=== PATIENT | male | born 1985 | race Caucasian/White ===

== ENCOUNTER 2017-11-25 06:05 | Observation (INO) | payer OTHER ==
[~2017-11-25] VITALS: Ht 172.7 cm; Wt 82.3 kg
[2017-11-25 07:22] LABS: HEMATOCRIT 44.8 % (38.0-50.0); HEMOGLOBIN 16.5 G/DL (12.5-16.6); MCH 33.5 PG (29.0-34.0); MCHC 36.8 G/DL (30.0-36.0); MCV 90.9 FL (86-99); PLATELET COUNT 122 K/uL (156-360); RBC DIS.WIDTH-CV 11.5 % (11.8-14.6); RBC DIS.WIDTH-SD 38.3 % (39-53); RED BLOOD COUNT 4.93 M/uL (4.00-5.50); WHITE BLOOD COUNT 5.7 K/uL (4.1-10.2)
[2017-11-25 07:47] LABS: TROP-I INTERPRETATION POSITIVE; TROPONIN-I 5.41 ng/mL (0.0-0.30)
[2017-11-25 07:50] LABS: CHLORIDE 99 MEQ/L (99-109); CREATINE KINASE 432 IU/L (1-294); GFR ESTIMATE (CALCULATED) > 59 mL/min/ (58.99-99999); GLUCOSE 116 mg/dL (70-99); POTASSIUM 4.4 MEQ/L (3.7-5.4); SODIUM 135 MEQ/L (136-147); TOTAL CK 432 IU/L (1-294); UREA NITROGEN (BUN) 12 mg/dL (9-23)
[2017-11-25 08:13] LABS: CK-MB 31.7 ng/mL (0.0-4.9); CKMB RELATIVE INDEX 7.3 (0.0-3.9)
[2017-11-25] MEDS ORDERED: ADVIL200 MG PO (08:41)
[2017-11-25 10:32] LABS: TROP-I INTERPRETATION POSITIVE
[2017-11-25 10:34] LABS: TROPONIN-I 6.19 ng/mL (0.0-0.30)
[2017-11-25 10:38] LABS: MAGNESIUM 2.2 mg/dl (1.3-2.7)
[2017-11-25 11:13] VITALS: BP 120/87
[2017-11-25 11:14] LABS: HEPATITIS B SURFACE ANTIGEN Nonreactive; HEPATITIS C ANTIBODY Nonreactive
[2017-11-25 11:15] LABS: ANTI-HEPATITIS A VIRUS (IGM) Nonreactive
[2017-11-25 11:17] LABS: ANTI-HEPATITIS B CORE (IGM) Nonreactive
[2017-11-25 11:33] LABS: C4 COMPLEMENT 38 MG/DL (10-40)
[2017-11-25 14:47] LABS: LYME DISEASE SEROLOGY SCREEN NEGATIVE (NEGATIVE)
[2017-11-25 20:35] VITALS: BP 113/90
[2017-11-25 21:44] LABS: TROP-I INTERPRETATION POSITIVE; TROPONIN-I 3.58 ng/mL (0.0-0.30)
[2017-11-26 00:15] VITALS: BP 115/76
[2017-11-26 05:00] VITALS: BP 115/63
[2017-11-26 05:37] LABS: HEMATOCRIT 36.9 % (38.0-50.0); MCH 32.6 PG (29.0-34.0); MCV 93.2 FL (86-99); PLATELET COUNT 110 K/uL (156-360); RBC DIS.WIDTH-CV 11.9 % (11.8-14.6); RBC DIS.WIDTH-SD 40.5 % (39-53); RED BLOOD COUNT 3.96 M/uL (4.00-5.50); WHITE BLOOD COUNT 3.9 K/uL (4.1-10.2)
[2017-11-26 05:38] LABS: HEMOGLOBIN 12.9 G/DL (12.5-16.6)
[2017-11-26 05:58] LABS: ALBUMIN 3.2 G/DL (3.2-4.8); ALKALINE PHOSPHATASE 54 IU/L (3-129); ALT (GPT) 38 IU/L (3-49); AST (GOT) 50 IU/L (2-34); CHLORIDE 107 MEQ/L (99-109); DIRECT BILIRUBIN 0.1 mg/dL (0.0-0.3); GFR ESTIMATE (CALCULATED) > 59 mL/min/ (58.99-99999); GLUCOSE 99 mg/dL (70-99); POTASSIUM 4.7 MEQ/L (3.7-5.4); SODIUM 140 MEQ/L (136-147); TOTAL BILIRUBIN 0.5 MG/DL (0.0-1.0); TOTAL PROTEIN 5.9 G/DL (6.4-8.3); UREA NITROGEN (BUN) 9 mg/dL (9-23)
[2017-11-26 08:36] VITALS: BP 120/75
[2017-11-26 10:56] LABS: APPEARANCE CLEAR ((CLEAR)); BILIRUBIN NEGATIVE; BLOOD MODERATE; COLOR YELLOW ((YELLOW)); GLUCOSE (STRIP) NEGATIVE; KETONES NEGATIVE; LEUKOCYTES NEGATIVE; NITRITE NEGATIVE; PROTEIN (STRIP) NEGATIVE; SPECIFIC GRAVITY 1.016 (1.000-1.030); UROBILINOGEN 0.2 MG/DL (0.2-1.0)
[2017-11-26 10:58] LABS: BACTERIA NONE SEEN /HPF; EPITHELIAL CELLS NONE SEEN /HPF; MUCUS TRACE /LPF; RED BLOOD CELLS 0-5 /HPF (0-5); UCUL ADDED? NO; WHITE BLOOD CELLS 0-5 /HPF (0-5)
[2017-11-26 12:34] LABS: ANTI-DOUBLE STRANDED DNA ND U/mL (0-99)
[2017-11-26 15:53] VITALS: BP 101/66
[2017-11-26] MEDS ORDERED: DOXYCYCLINE HY100 M3 PO (16:47)
[2017-11-26] MEDS ORDERED: PRAVASTATIN SOD40 MG PO (16:47)
[2017-11-26] MEDS ORDERED: THIAMINE HCL100 MG PO (16:47)
[2017-11-26] MEDS ORDERED: CARVEDILOL6.25 MG PO (16:47)
[2017-11-26] MEDS ORDERED: LOSARTAN POTASS25 MG PO (16:47)
[2017-11-26] MEDS ORDERED: FOLIC ACID1 MG PO (16:49)
[2017-11-26] MEDS ORDERED: DAILY VALUE1 EACH PO (16:49)
== END 2017-11-26 18:41 | disposition home or self-care (01) ==
LOC: EME 06:05 → 4EAST 08:41 → EDOF 08:41 → ENRESERV 08:42 → 4EAST 10:08 → ENPENDDIS 11-26 → 4EAST 11-26 15:24
PROVIDERS: Hospitalist
PROC: B2151ZZ Fluoroscopy of Left Heart using Low Osmolar Contrast (ICD-10-PCS; principal; 2017-11-25)
PROC: 4A023N7 Measurement of Cardiac Sampling and Pressure, Left Heart, Percutaneous Approach (ICD-10-PCS; principal; 2017-11-25)
PROC: B2111ZZ Fluoroscopy of Multiple Coronary Arteries using Low Osmolar Contrast (ICD-10-PCS; principal; 2017-11-25)
DX: I40.0 Infective myocarditis (principal); I30.1 Infective pericarditis; A87.9 Viral meningitis, unspecified; F10.10 Alcohol abuse, uncomplicated; F17.220 Nicotine dependence, chewing tobacco, uncomplicated; D69.6 Thrombocytopenia, unspecified
CPT/HCPCS: 71046; 80048; 80074; 80076; 81003; 82550; 82553; 83516 90; 83735; 84484; 85027; 85347; 85651; 85730; 86038; 86060 90; 86140; 86160; 86235; 86618; 86658 90; 87040; 87502; 93005; 93306; 99281; 99285; C1769; C1887; G0378; J1644; J2250; J3010; J3411; J3475; J7030; J7040; J7050